=== PATIENT | male | born 1995 | race Caucasian/White ===

== ENCOUNTER 2023-04-30 10:02 | Emergency (ER) | payer MEDICAID ==
[2023-04-30 10:27] LABS: BASOPHILS # (AUTO) 0.1 10^3/uL (0.0-0.1); BASOPHILS % (AUTO) 0.6 %; EOSINOPHILS # (AUTO) 0.1 10^3/uL (0.0-0.7); EOSINOPHILS % (AUTO) 1.7 %; HCT - HEMATOCRIT 46.5 % (42.0-52.0); HGB - HEMOGLOBIN 16.2 g/dL (14.0-18.0); LYMPHOCYTES # (AUTO) 2.8 10^3/uL (1.5-3.5); LYMPHOCYTES % (AUTO) 33.5 %; MEAN CORPUSCULAR HEMOGLOBIN 31.5 pg (27.0-31.0); MEAN CORPUSCULAR HGB CONC 34.8 g/dL (32.0-36.0); MEAN CORPUSCULAR VOLUME 90.3 fL (80.0-94.0); MEAN PLATELET VOLUME 9.8 fL (7.4-11.4); MONOCYTES # (AUTO) 1.2 10^3/uL (0.0-1.0); MONOCYTES % (AUTO) 14.3 %; NEUTROPHILS # (AUTO) 4.2 10^3/uL (1.5-6.6); NEUTROPHILS % (AUTO) 49.7 %; PLT - PLATELET COUNT 292 10^3/uL (130-450); RED BLOOD COUNT 5.15 10^6/uL (4.70-6.10); RED CELL DISTRIBUTION WIDTH 12.2 % (12.0-15.0); WHITE BLOOD COUNT 8.4 x10^3/uL (4.8-10.8)
[2023-04-30 10:48] LABS: ALBUMIN 4.8 g/dL (3.2-5.5); ALBUMIN/GLOBULIN RATIO 1.4 (1.0-2.2); BILIRUBIN,TOTAL 0.6 mg/dL (0.2-1.0); CALCIUM 9.6 mg/dL (8.5-10.3); POTASSIUM 3.8 mmol/L (3.5-4.5); TOTAL PROTEIN 8.2 g/dL (6.4-8.9)
[2023-04-30 11:14] LABS: BILIRUBIN,URINE NEGATIVE (NEGATIVE); GLUCOSE, URINE (UA) NEGATIVE (NEGATIVE); KETONES,URINE (UA) 15 mg/dL (NEGATIVE); LEUKOCYTE ESTERASE, URINE NEGATIVE (NEGATIVE); NITRITE,URINE NEGATIVE (NEGATIVE); OCCULT BLOOD,URINE NEGATIVE (NEGATIVE); PROTEIN,URINE NEGATIVE (NEGATIVE); UROBILINOGEN,URINE 0.2 (NORMAL) E.U./dL (NORMAL)
[2023-04-30 11:15] LABS: CLARITY,URINE CLEAR (CLEAR)
[2023-04-30] MEDS ORDERED: ONDANSETRON 4 MG/2 ML VIAL IVP STA (11:44)
[2023-04-30] MEDS ORDERED: SODIUM CHLORIDE 0.9% 1,000 ML IV STA (11:44)
--- NOTE | 2023-04-30 12:07 | ED Physician Documentation ---
PD HPI NVD - Stated complaint Stated Complaint: VOMITING - Chief complaint Chief Complaint: Abd Pain - History obtained from History obtained from: Patient - Additonal information Additional information: Patient is a 27-year-old male with no significant prior medical history presenting for evaluation of nausea and vomiting that has been persistent since Friday. Patient reports having numerous episodes of emesis consisting of food. He was able to tolerate chicken and potatoes on Friday but since then again has been vomiting.Reports also having a few loose stools each day. No blood in emesis or stools. Denies recent travel, sick contacts or antibiotic use. Denies any prior abdominal surgeries. Does use marijuana regularly but has not used in the past several days. Denies alcohol use regularly. Did use significant others Zofran at home which was helpful. Review of Systems Constitutional: denies: Fever Cardiac: denies: Chest pain / pressure Respiratory: denies: Dyspnea GI: reports: Nausea, Vomiting. denies: Abdominal Pain, Bloody / black stool : denies: Dysuria Neurologic: denies: Headache PD PAST MEDICAL HISTORY - Present Medications Home Medications: Ambulatory Orders Medication Instructions Recorded Confirmed Ondansetron Odt [Zofran] 4 mg TL Q6H PRN #10 tablet 04/30/23 - Allergies Allergies/Adverse Reactions: Allergies Allergy/AdvReac Type Severity Reaction Status Date / Time orange AdvReac Unknown Verified 04/30/23 10:11 PD ED PE NORMAL - General General: Alert and oriented X 3, No acute distress, Well developed/nourished - HEENT HEENT: Atraumatic, Moist mucous membranes, Pharynx benign - Neck Neck: Supple, no meningeal sign - Cardiac Cardiac: RRR, No murmur - Respiratory Respiratory: No respiratory distress, Clear bilaterally - Abdomen Abdomen: Normal bowel sounds, Soft, Non tender, Non distended - Derm Derm: Warm and dry - Neuro Neuro: Normal speech Results - Vitals Vitals: Vital Signs - 24 hr 04/30/23 04/30/23 10:11 13:30 Temperature 36.9 C 37.1 C Heart Rate 85 76 Respiratory 16 16 Rate Blood Pressure 141/94 H 125/103 H O2 Saturation 96 99 Oxygen O2 Source Room air - Labs Labs: Laboratory Tests 04/30/23 04/30/23 04/30/23 10:20 10:22 10:22 WBC 8.4 RBC 5.15 Hgb 16.2 Hct 46.5 MCV 90.3 MCH 31.5 H MCHC 34.8 RDW 12.2 Plt Count 292 MPV 9.8 Neut # (Auto) 4.2 Lymph # (Auto) 2.8 [place] # (Auto) 1.2 H Eos # (Auto) 0.1 Baso # (Auto) 0.1 Absolute Nucleated RBC 0.00 Nucleated RBC % 0.0 Sodium 137 Potassium 3.8 Chloride 102 Carbon Dioxide 29 Anion Gap 6.0 BUN 15 Creatinine 1.0 Estimated GFR (MDRD) 90 Glucose 99 Calcium 9.6 Total Bilirubin 0.6 AST 25 ALT 29 Alkaline Phosphatase 95 Total Protein 8.2 Albumin 4.8 Globulin 3.4 Albumin/Globulin Ratio 1.4 Lipase 17 Urine Color YELLOW Urine Clarity CLEAR Urine pH 6.0 Ur Specific [place] 1.020 Urine Protein NEGATIVE Urine Glucose (UA) NEGATIVE Urine Ketones 15 H Urine Occult Blood NEGATIVE Urine Nitrite NEGATIVE Urine Bilirubin NEGATIVE Urine Urobilinogen 0.2 (NORMAL) Ur Leukocyte Esterase NEGATIVE Ur Microscopic Review NOT INDICATED Urine Culture Comments NOT INDICATED PD Medical Decision Making - ED course Complexity details: reviewed results, re-evaluated patient ED course: Pt with several days of reported N/V. VSS. Abdominal exam benign. CBC, CMP, U/A without significant findings. No need for emergent imaging based on labs or exam. Feeling better with IV fluids and zofran. Discussed continued supportive care as well as concerning symptoms to return for. Encourage cannabis cessation. Departure - Departure Disposition: 01 Home, Self Care Clinical Impression: Nausea & vomiting Condition: Stable Instructions: ED Nausea Vomiting Prescriptions: Ondansetron Odt [Zofran] 4 mg TL Q6H PRN #10 tablet PRN Reason: Nausea / Vomiting Comments: You were evaluated for several days of nausea and vomiting. Your electrolytes are normal. We did give you IV fluids and Zofran. I have sent a prescription for this antinausea medication to [facility] in [place]. I would recommend starting with a liquid diet today and advancing as tolerated but I would avoid anything spicy or acidic or too heavy for the next 2 days. I would also consider reducing your marijuana use as this could have been a trigger for your symptoms today. I would recommend close follow-up with your primary care provider. Return to the emergency department with any worsening symptoms. Forms: PCP List Discharge Date/Time: 04/30/23 13:31
[2023-05-01 10:56] VITALS: BP 125/103; O2SAT 99
== END 2023-04-30 13:31 | disposition home or self-care (01) ==
LOC: ED 10:02
DX: R11.2 Nausea with vomiting, unspecified (principal)
CPT/HCPCS: 36415; 80053; 81001; 81003; 83690; 85025; 87086; 96374; 99284